=== PATIENT | male | born 1985 | race Caucasian/White ===

== ENCOUNTER 2016-04-24 22:14 | Emergency (ER) | payer BC ==
[~2016-04-24 22:14] MED LIST: ALBUTEROL17 GM INH; AMOXICILLIN875 MG PO; MUCINEX100 MG/BOX PO; NO MEDICATIONS; PREDNISONE PO; TESSALON PERLE100 M1 PO; ZITHROMAX PO; ZYRTEC PO
== END 2016-04-24 22:28 | disposition home or self-care (01) ==
LOC: SED 22:14
DX: R19.7 Diarrhea, unspecified (principal); F17.200 Nicotine dependence, unspecified, uncomplicated
CPT/HCPCS: 99282